=== PATIENT | female | born 1990 | race African-American/Black ===

== ENCOUNTER 2019-08-09 22:16 | Emergency (ER) | payer OTHER, SELFPAY ==
[2019-08-09 22:19] VITALS: BP 132/77; PULSE 72; RESP 18; TEMP 36.8; O2SAT 100
--- NOTE | 2019-08-09 22:53 | ED.EYEPROB ---
HPI - Eye Problem General Chief complaint: Eye Problems Stated complaint: bump under eye lid Time Seen by Provider: 08/09/19 22:29 Source: patient Mode of arrival: ambulatory Limitations: no limitations History of Present Illness HPI Narrative: 28 yo female who presents with c/o bump under her right eye lid. She states she has noticed small bump on medial upper lip that has been present for 3 weeks. She has come to ER because she reports the bump seems to be increasing in size and it is starting to cause irritation. She denies eye discharge or redness. She denies wearing contact lenses. She reports she has prescription for eye glasses but she does not wear them. Onset (ago): week(s) (3) Onset description: gradual Duration: progressively worsening Location: right eye Eye Symptoms: discharge Associated symptoms: none Related Data Allergies Allergy/AdvReac Type Severity Reaction Status Date / Time No Known Allergies Allergy Unverified 11/20/16 00:40 Review of Systems Constitutional: Constitutional: Denies chills and Denies fever(s) Eyes: Eyes: Denies change in vision, Denies diplopia, Denies eye discharge and Denies photophobia [facility] Past Medical History Medical History (Updated 08/09/19 @ 23:04 by Niecy Sierra MD) Healthy adult Social History Social History Gender identity (if verbalized by the patient): Female Exam Const: General: no acute distress and alert Orientation/consciousness: patient oriented x3 HENMT: Ears: hearing grossly normal bilaterally and external ears normal Face and sinus: sinuses nontender and face symmetric Eyes: Eyelids: eyelid abnormality right upper eyelid inflamed cyst (medial) internal lid Conjunctivae: conjunctivae normal Sclera: sclerae normal Pupils: Equal, round and reactive pupils present EOM: EOMs intact bilaterally Neck: Neck: normal visual inspection and no lymphadenopathy Course Vital Signs Vital signs: Vital Signs Temperature 98.3 F 08/09/19 22:19 Pulse Rate 72 08/09/19 22:19 Respiratory Rate 18 08/09/19 22:19 Blood Pressure 132/77 08/09/19 22:19 Pulse Oximetry 100 08/09/19 22:19 Temperature 98.3 F 08/09/19 22:19 Pulse Rate 72 08/09/19 22:19 Respiratory Rate 18 08/09/19 22:19 Blood Pressure 132/77 08/09/19 22:19 Pulse Oximetry 100 08/09/19 22:19 Discharge Plan Discharge Clinical Impression: Chalazion of right upper eyelid Patient Disposition: Home, Self-Care Condition: Stable Instructions: Antibiotic Form, Stye (ED), Carina (ED) Additional Instructions: Today you were evaluated for eyelid bump. You will need to apply warm compress to the lid to help reduce pain and inflammation. You should do this 3- 4 times day for 10 days. Use ointment as prescribed. Follow up with eye doctor next week. Prescriptions: New bacitracin-polymyxin B 500-10,000 unit/gram ointment 1 applic RIGHT EYE Q3H 10 Days RF: 0 Follow-up/Referrals: UNKNOWN,DOCTOR [Primary Care Provider] -
== END 2019-08-09 23:25 | disposition home or self-care (01) ==
PROVIDERS: Emergency Provider General Practice
DX: H00.11 Chalazion right upper eyelid (principal)
CPT/HCPCS: 99283

== ENCOUNTER 2019-09-11 14:39 | Emergency (ER) | payer OTHER, SELFPAY ==
[2019-09-11 15:58] VITALS: BP 113/69; PULSE 77; RESP 18; TEMP 36.8; O2SAT 95
--- NOTE | 2019-09-11 16:26 | ED.URI ---
HPI - URI/Sore Throat General Chief Complaint: Upper Respiratory Infection Stated Complaint: headache, cold symptoms Time Seen by Provider: 09/11/19 16:13 History of Present Illness HPI Narrative: 28 y/o female presents to ED with 3 day history of cold symptoms. Pt reports onset has been gradual. She reports intermittent headaches, skin sensitive to touch on her back only, cough that is non-productive, sore throat, rhinorrhea. She denies F/C, SOB, recent travel, exposure to anyone who has recently traveled internationally or in a high risk area for COVID-19. Related Data Allergies Allergy/AdvReac Type Severity Reaction Status Date / Time No Known Allergies Allergy Unverified 11/20/16 00:40 Review of Systems Review of Systems: Narrative: CONSTITUTIONAL: Denies fever, chills, or sweats. EYES: Denies visual changes, redness, or discharge. ENT: Denies rhinorrhea, congestion. Reports sore throat. CARDIOVASCULAR: Denies chest pain, palpitations, or edema. RESPIRATORY: Reports cough, denies shortness of breath. GASTROINTESTINAL: Denies abdominal pain, nausea, vomiting, or diarrhea. GENITOURINARY: Denies dysuria or hematuria. SKIN: Denies rash or itching. Reports sensitive skin to back with touch. MUSCULOSKELETAL: Denies back pain, joint pain, or myalgia. NEUROLOGIC: Denies numbness, or weakness. Reports intermittent headaches. Denies photophobia. PSYCHIATRIC: Denies anxiety or depression. [facility] Past Medical History Medical History Healthy adult History of herpes genitalis Family History Family History (Updated 09/11/19 @ 18:20 by JOSE Victor) Mother SLE (systemic lupus erythematosus) Sibling SLE (systemic lupus erythematosus) Social History Social History (Updated 09/11/19 @ 18:21 by JOSE Victor) Smoking status: Never smoker Alcohol use details: occasional Substance use: never Gender identity (if verbalized by the patient): Female Exam Narrative: Exam Narrative: GENERAL: Well-appearing, well-nourished, and in no acute distress. HEAD: Normocephalic, atraumatic. EYES: PERRL. Sclera anicteric ENT: Nares clear, no rhinorrhea or epistaxis. Mucous membranes moist. No tonsillar exudates, posterior pharynx is Erythematic, no palatal petechiae.Uvula is midline. NECK: Supple. No cervical lymphadenopathy CHEST: Clear to auscultation. No respiratory distress. HEART: Regular rate and rhythm. No murmur heard. Normal peripheral pulses. ABDOMEN: Soft, nontender, nondistended, normal active bowel sounds. EXTREMITIES: Normal range of motion. No edema. SKIN: Warm, dry. Patient reports skin to back is tender to touch, no distinct rash but there a pale erythematic tone when skin is blanched. NEURO: No focal deficits. Alert and oriented x3. PSYCH: Normal mood and affect. Course Vital Signs Vital signs: Vital Signs Temperature 36.8 C 09/11/19 15:58 Pulse Rate 77 09/11/19 15:58 Respiratory Rate 18 09/11/19 15:58 Blood Pressure 113/69 09/11/19 15:58 Pulse Oximetry 95 09/11/19 15:58 Temperature 36.8 C 09/11/19 15:58 Pulse Rate 77 09/11/19 15:58 Respiratory Rate 18 09/11/19 15:58 Blood Pressure 113/69 09/11/19 15:58 Pulse Oximetry 95 09/11/19 15:58 MDM - URI/Sore Throat MDM Narrative Medical decision making narrative: Symptoms and onset are consistent with viral URI. Instructed on OTC medication use for symptomatic relief and reasons to see PCP or return to the ED. Lab Data Labs: Strep Screen Presumptive Negative *(Reference Range: Negative)* Discharge Plan Discharge Clinical Impression: Upper respiratory infection, Pharyngitis Patient Disposition: Home, Self-Care Condition: Stable Instructions: Viral Syndrome (ED), Cold Symptoms (ED) Additional Instructions: Stay well-hydrated. Use [id number] Tylenol or ibuprofen as directed as josie
== END 2019-09-11 17:40 | disposition home or self-care (01) ==
DX: J06.9 Acute upper respiratory infection, unspecified (principal); J02.9 Acute pharyngitis, unspecified
CPT/HCPCS: 87081; 87880; 99283

== ENCOUNTER 2019-12-26 00:07 | Emergency (ER) | payer OTHER, SELFPAY ==
--- NOTE | ~2019-12-26 | XR_ITS ---
EXAMINATION: XR chest 2V 12/26/2019 00:34 INDICATION: Midline chest pain PROCEDURE: 2 view chest COMPARISON: 02/23/2016 FINDINGS: The lungs are clear. The cardiomediastinal silhouette is within normal limits. There are no pleural effusions. There is no pneumothorax suspected. IMPRESSION: 1: NO ACUTE CARDIOPULMONARY DISEASE. Reviewed, dictated and finalized at location A.
--- NOTE | 2019-12-26 00:12 | ECG_ITS ---
Measurements Intervals [place] Rate: 82 P: 62 [place]: 139 QRS: 29 QRSD: 92 T: 52 QT: 357 QTc: 417 Interpretive Statements SINUS RHYTHM RSR' IN V1 OR V2, PROBABLY NORMAL VARIANT BORDERLINE ECG Electronically Signed On 12-26-2019 6:52:32 CDT by Joey Christiansen D.O.
[2019-12-26 00:24] LABS: Basophils Percent Auto 0.6 % (0.2-1.2); Eosinophils Absolute Auto 0.4 K/mm3 (0-0.3); Hematocrit 39.5 % (37.0-47.0); Immature Granulocyte Absolute 0.01 K/mm3 (0.00-0.031); Immature Granulocyte Percent A 0.2 % (0-0.5); Lymphocytes Absolute Auto 2.55 K/mm3 (0.9-3.2); Lymphocytes Percent Auto 40.2 % (18.3-44.2); Mean Corpuscular HGB Conc 32.9 g/dl (32-36); Mean Corpuscular Hemoglobin 29.4 pg (26-34); Mean Corpuscular Volume 89.4 fl (80-100); Mean Platelet Volume 10.4 fl (7.4-10.4); Monocytes Absolute Auto 0.4 K/mm3 (0.1-0.6); Platelet Count Result 263 k/mm3 (150-375); Red Blood Count 4.42 M/mm3 (4.2-5.4); Red Cell Distribution Width 12.6 % (11.5-14.5); White Blood Count 6.3 K/mm3 (4.5-10.0)
--- NOTE | 2019-12-26 00:24 | ED.CHESTPAIN ---
HPI - Chest Pain General Chief Complaint: Chest Pain Stated Complaint: CP Time Seen by Provider: 12/26/19 00:12 Source: patient Mode of arrival: ambulatory Limitations: no limitations History of Present Illness HPI narrative: Patient is a 29-year-old female who presents for evaluation of chest pain. Patient reports intermittent pain over the past month, pain this evening started approximately 6 hours ago. Dull, aching in nature over the left breast, worse with inspiration. She denies jaw pain, neck pain, shoulder pain, back pain, abdominal pain. No nausea, vomiting or diaphoresis. No leg swelling or calf pain. No recent car or long air travel. No history of DVT or coagulopathy that the patient is aware of in self or in her family. Patient has a family history of cardiac disease. Related Data Allergies Allergy/AdvReac Type Severity Reaction Status Date / Time No Known Allergies Allergy Unverified 11/20/16 00:40 Review of Systems Review of Systems: Narrative: CONSTITUTIONAL: Denies fever, chills, or sweats. EYES: Denies visual changes, redness, or discharge. ENT: Denies rhinorrhea, congestion, sore throat, or otalgia. CARDIOVASCULAR: Reports left-sided chest pain, denies palpitations or edema. RESPIRATORY: Denies cough or dyspnea. GASTROINTESTINAL: Denies abdominal pain, nausea, vomiting, or diarrhea. GENITOURINARY: Denies dysuria or hematuria. SKIN: Denies rash or itching. MUSCULOSKELETAL: Denies back pain, joint pain, or myalgia. NEUROLOGIC: Denies headache, numbness, or weakness. [facility] Past Medical History Medical History Healthy adult History of herpes genitalis Family History Family History (Updated 09/11/19 @ 18:20 by JOSE Victor) Mother SLE (systemic lupus erythematosus) Sibling SLE (systemic lupus erythematosus) Social History Social History Smoking status: Never smoker Substance use: never Gender identity (if verbalized by the patient): Female Exam Narrative: Exam Narrative: GENERAL: Awake, alert, conversant HEAD: Normocephalic, atraumatic. EYES: PERRLA and EOMI. ENT: Nares clear, no rhinorrhea or epistaxis. Mucous membranes moist. NECK: Supple. CHEST: No respiratory distress, breathing even and non labored, left-sided chest wall pain HEART: Regular rate, sinus rhythm ABDOMEN:Non distended, non tender EXTREMITIES: Normal range of motion. No edema. SKIN: Warm, dry, no rash. NEURO:No focal deficits. Alert and oriented x3 Course Vital Signs Vital signs: Vital Signs Temperature 36.3 C L 12/26/19 00:26 Pulse Rate 94 12/26/19 00:26 Respiratory Rate 19 12/26/19 00:26 Blood Pressure 124/76 12/26/19 00:26 Pulse Oximetry 100 12/26/19 00:26 Temperature 36.3 C L 12/26/19 00:26 Pulse Rate 94 12/26/19 00:26 Respiratory Rate 19 12/26/19 00:26 Blood Pressure 124/76 12/26/19 00:26 Pulse Oximetry 100 12/26/19 00:26 MDM - Chest Pain MDM Narrative Medical decision making narrative: Patient's EKG and labs are without significant high risk changes. Cardiac risk factors reviewed. Patient is felt low risk for ACS and reasonable for further risk stratification testing as an outpatient. Pain was not sudden or maximal or onset without tearing or ripping quality. Furthermore, pain is been chronic over the past month. No palpitations. No other signs or symptoms to suggest aortic dissection. A low risk well's criteria is noted, PE is felt to be unlikely given d-dimer is not elevated. No pneumonia seen on evaluation today. Patient may have a component of pleurisy to her pain. Advised to take Tylenol, ibuprofen and follow-up with a primary care physician which she was given contact information for. Patient is felt to be a reasonable candidate for continued evaluation as an outpatient. Differential Diagnosis Differential diagnosis: Likely pneumoth
[2019-12-26 00:26] VITALS: BP 124/76; PULSE 94; RESP 19; TEMP 36.3; O2SAT 100
[2019-12-26 00:35] LABS: Blood Urea Nitrogen 13 mg/dL (7-17); Calcium 8.6 mg/dL (8.4-10.2); Carbon Dioxide 26 mmol/L (22-30); Chloride 107 mmol/L (98-107); Estimated CRCL calculation 79 ml/min; Estimated Glomerular Filt Rate > 60; Glucose 94 mg/dL (65-105); Sodium 139 mmol/L (137-145)
[2019-12-26 00:36] LABS: Partial Thromboplastin Time 25.9 SECONDS (22.3-36.8)
[2019-12-26] MEDS: ASPIRIN 81 MG CHEWABLE TABLET 324 MG PO (00:41)
[2019-12-26] MEDS: KETOROLAC 15 MG/ML VIAL (*BKC) IV PUSH (00:41)
[2019-12-26 00:42] LABS: D Dimer 0.27 ug/mL (<0.48)
[2019-12-26 00:54] LABS: Troponin I < 0.012 ng/mL (0.000-0.034)
[2019-12-26 01:19] VITALS: BP 104/72; PULSE 83; RESP 17; O2SAT 100
== END 2019-12-26 01:20 | disposition home or self-care (01) ==
PROVIDERS: Emergency Provider Emergency Medicine
DX: R07.89 Other chest pain (principal); R94.31 Abnormal electrocardiogram [ECG] [EKG]
CPT/HCPCS: 36415; 71046; 80048; 84484; 85025; 85380; 85610; 85730; 93005; 96374; 99284; A9270; J1885

== ENCOUNTER 2020-03-10 17:30 | Emergency (ER) | payer OTHER, SELFPAY ==
--- NOTE | ~2020-03-10 | XR_ITS ---
EXAMINATION: XR chest 2V DATE: 03/10/2020 18:48 INDICATION: Chest pain. TECHNIQUE: Frontal and lateral views of the chest were obtained. COMPARISON: Chest 2 views 12/26/2019 FINDINGS: The chest demonstrates clear lungs without pneumonia, pleural effusion, or pneumothorax. Th e heart size is normal. IMPRESSION: 1. No acute cardiopulmonary disease. Reviewed, dictated and finalized at location A.
--- NOTE | 2020-03-10 17:36 | ECG_ITS ---
Measurements Intervals [place] Rate: 95 P: 79 [place]: 136 QRS: 19 QRSD: 90 T: 61 QT: 337 QTc: 424 Interpretive Statements SINUS RHYTHM POSSIBLE LEFT ATRIAL ENLARGEMENT INCOMPLETE RIGHT BUNDLE BRANCH BLOCK NONSPECIFIC T-WAVE ABNORMALITY- ANT/HIGH LAT LEADS BORDERLINE ECG Electronically Signed On 03-10-2020 21:00:51 CDT by Joey Christiansen D.O.
[2020-03-10 18:05] VITALS: BP 112/75; PULSE 92; RESP 18; TEMP 36.6; O2SAT 100
[2020-03-10 18:18] LABS: Basophils Percent Auto 0.5 % (0.2-1.2); Eosinophils Absolute Auto 0.3 K/mm3 (0-0.3); Eosinophils Percent Auto 4.7 % (0-4.4); Hematocrit 41.5 % (37.0-47.0); Hemoglobin 13.5 g/dL (12.0-15.0); Immature Granulocyte Absolute 0.01 K/mm3 (0.00-0.031); Immature Granulocyte Percent A 0.2 % (0-0.5); Lymphocytes Absolute Auto 2.03 K/mm3 (0.9-3.2); Lymphocytes Percent Auto 36.7 % (18.3-44.2); Mean Corpuscular HGB Conc 32.5 g/dl (32-36); Mean Corpuscular Volume 89.1 fl (80-100); Mean Platelet Volume 10.2 fl (7.4-10.4); Monocytes Absolute Auto 0.2 K/mm3 (0.1-0.6); Monocytes Percent Auto 4.3 % (2.6-8.5); Neutrophils Percent Auto 53.6 % (45.5-73.1); Platelet Count Result 246 k/mm3 (150-375); Red Blood Count 4.66 M/mm3 (4.2-5.4); Red Cell Distribution Width 12.2 % (11.5-14.5); White Blood Count 5.5 K/mm3 (4.5-10.0)
[2020-03-10 18:28] LABS: INR 1.1; Prothrombin Time 13.4 Seconds (11.1-14.7)
[2020-03-10 18:29] LABS: Partial Thromboplastin Time 26.4 SECONDS (22.3-36.8)
[2020-03-10 18:31] LABS: Anion Gap 5 mmol/L (8-16); Blood Urea Nitrogen 11 mg/dL (7-17); Calcium 8.9 mg/dL (8.4-10.2); Carbon Dioxide 28 mmol/L (22-30); Chloride 104 mmol/L (98-107); Estimated CRCL calculation 90 ml/min; Estimated Glomerular Filt Rate > 60; Glucose 111 mg/dL (65-105); Potassium 3.8 mmol/L (3.4-5.0); Sodium 137 mmol/L (137-145)
[2020-03-10 18:43] LABS: Troponin I < 0.012 ng/mL (0.000-0.034)
--- NOTE | 2020-03-10 20:33 | ED.GENADULT ---
HPI - General Adult General Chief complaint: Chest Pain Stated complaint: CP Time Seen by Provider: 03/10/20 20:25 Source: patient History of Present Illness HPI narrative: Patient is a 29 y/o female complaining of chest pain for about 7 hours. She states that her pain is located in midsternal area with no radiation. Her pain is sharp and rated as 7/10. Stretching arm worsens her pain. She has no shortness of breath, cough or fever. She thought perhaps her chest pain started after stretching her arms, but she is not sure. Related Data Allergies Allergy/AdvReac Type Severity Reaction Status Date / Time No Known Allergies Allergy Unverified 11/20/16 00:40 Review of Systems Constitutional: Constitutional: Denies chills, Denies fever(s), Denies headache(s) and Denies weakness Eyes: Eyes: Denies blurry vision ENT: Denies headache(s) and Denies neck pain Cardiovascular: Cardiovascular: Reports chest pain and Denies dyspnea Respiratory: Respiratory: Denies cough and Denies dyspnea Gastrointestinal: Gastrointestinal: Denies abdominal pain, Denies diarrhea, Denies nausea and Denies vomiting Genitourinary: Genitourinary: Denies hematuria and Denies dysuria Musculoskeletal: Musculoskeletal: Denies back pain and Denies neck pain Neurologic: Denies headache(s) and Denies weakness PMFSH Past Medical History Medical History Healthy adult History of herpes genitalis Family History Family History Mother SLE (systemic lupus erythematosus) Sibling SLE (systemic lupus erythematosus) Social History Social History Smoking status: Never smoker Substance use: never Gender identity (if verbalized by the patient): Female Exam Const: General: no acute distress and well developed Orientation/consciousness: oriented to person, oriented to place, oriented to time and patient oriented x3 HENMT: Head: normocephalic Ears: external ears normal General nose exam: Normal external nose present Eyes: General: appearance normal, both eyes and all related structures Conjunctivae: conjunctivae normal Neck: Neck: normal visual inspection and full ROM Chest: Chest palpation & inspection: normal inspection of the chest and no tenderness Resp: Effort & Inspection: normal respiratory effort Auscultation: clear to auscultation bilaterally Cardio: Rate: regular rate Rhythm: regular rhythm GI: GI Palp: No abdominal tenderness and Yes Soft to palpation Skin: General skin exam: normal color and turgor normal Neuro: General: oriented to person, oriented to place, oriented to time and patient oriented x3 Cognition (Neuro): normal cognition Extrem: General: normal to inspection, full ROM and no pedal edema Psych: Appearance: grossly normal Mental Status: mental status grossly normal Affect: normal affect Course Vital Signs Vital signs: Vital Signs Temperature 36.6 C 03/10/20 18:05 Pulse Rate 92 03/10/20 18:05 Respiratory Rate 18 03/10/20 18:05 Blood Pressure 112/75 03/10/20 18:05 Pulse Oximetry 100 03/10/20 18:05 Temperature 36.6 C 03/10/20 18:05 Pulse Rate 92 03/10/20 18:05 Respiratory Rate 18 03/10/20 18:05 Blood Pressure 112/75 03/10/20 18:05 Pulse Oximetry 100 03/10/20 18:05 Medical Decision Making Vital Signs Vital Signs: Vital Signs Temperature 36.6 C 03/10/20 18:05 Pulse Rate 92 03/10/20 18:05 Respiratory Rate 18 03/10/20 18:05 Blood Pressure 112/75 03/10/20 18:05 Pulse Oximetry 100 03/10/20 18:05 Temperature 36.6 C 03/10/20 18:05 Pulse Rate 92 03/10/20 18:05 Respiratory Rate 18 03/10/20 18:05 Blood Pressure 112/75 03/10/20 18:05 Pulse Oximetry 100 03/10/20 18:05 Lab Data Result diagrams: 03/10/20 18:12 03/10/20 18:12 Labs: Lab Result
--- NOTE | 2020-03-10 20:37 | PC.NURSE ---
called lab to add on d dimer
[2020-03-10 21:09] LABS: D Dimer 0.27 ug/mL (<0.48)
[2020-03-10 21:44] LABS: Troponin I < 0.012 ng/mL (0.000-0.034)
== END 2020-03-11 00:01 | disposition home or self-care (01) ==
PROVIDERS: Emergency Medicine; Emergency Provider Emergency Medicine; Referring Provider Family Medicine
DX: R07.89 Other chest pain (principal); I45.10 Unspecified right bundle-branch block
CPT/HCPCS: 36415; 71046; 80048; 84484; 85025; 85380; 85610; 85730; 93005; 99284